=== PATIENT | male | born 1940 | race Caucasian/White ===

== ENCOUNTER 2024-07-21 08:04 | Observation (INO) | payer MEDICARE, MEDICAID, SELFPAY ==
[2024-07-21] VITALS (35 sets, daily range): BP systolic 148–177; BP diastolic 71–85; PULSE 63–88; TEMP 36.4–36.6; O2SAT 92–100; BMI 27.2; BMI 25.9
--- NOTE | 2024-07-21 08:13 | ECG_ITS ---
[facility] Date: 2024-07-21 Pat Name: WANDA ÁLVAREZ Department: Room: - Gender: Male [employer] Technical: : 1940 Requested By: [id number] Order Number: [id number] Reading MD: PRECIOUS WRAY M.D. Measurements Intervals Ivel Rate: 70 P: -30 AK: 224 QRS: 4 QRSD: 102 T: 11 QT: 386 QTc: 406 Interpretive Statements 1100 Sinus rhythm 2231 First degree AV block 2440 Incomplete right bundle branch block 9150 abnormal ECG Compared to ECG 12/18/2020 20:16:38 Supraventricular complexes are no longer present QRS duration has decreased Electronically Signed On 07-21-2024 20:04:17 EDT by PRECIOUS WRAY M.D.
[2024-07-21 09:00] LABS: Basophils Absolute Auto 0.1 10^3/uL (0.0-0.1); Basophils Percent Auto 0.8 % (0.2-2.0); Eosinophils Absolute Auto 0.4 10^3/uL (0.0-0.7); Eosinophils Percent Auto 5.7 % (0.9-7.0); Hematocrit 42.6 % (42.0-54.0); Hemoglobin 14.4 g/dL (14.0-18.0); Immature Granulocytes Abs Auto 0.03 10^3/uL (0.00-0.03); Immature Granulocytes Pct Auto 0.5 % (0.0-0.5); Lymphocytes Percent Auto 15.7 % (20.5-60.0); Mean Corpuscular HGB Conc 33.8 g/dL (29.9-35.2); Mean Corpuscular Hemoglobin 32.7 pg (25.9-34.0); Mean Corpuscular Volume 96.6 fL (80.0-94.0); Mean Platelet Volume 9.5 fL (9.5-13.5); Monocytes Absolute Auto 0.6 10^3/uL (0.3-0.8); Monocytes Percent Auto 9.1 % (1.7-12.0); Neutrophils Absolute Auto 4.2 10^3/uL (1.4-6.5); Neutrophils Percent Auto 68.2 % (43.0-75.0); Platelet Count 187 10^3/uL (150-450); Red Blood Count 4.41 10^6/uL (4.70-6.10); Red Cell Distribution Width 13.2 % (11.0-15.0); White Blood Count 6.2 10^3/uL (4.0-11.0)
[2024-07-21] MEDS: KETOROLAC TROMETHAMINE 30 MG/ML VIAL IVP (09:12)
[2024-07-21 09:15] LABS: Anion Gap 13.3; BUN Creatinine Ratio 32.2; Carbon Dioxide 29.1 mmol/L (21.0-32.0); Chloride 105 mmol/L (98-107); Estimated GFR (African America >60 (>=60 mL/min/1.73m^2); Estimated GFR (Non-African Ame >60 (>=60 mL/min/1.73m^2); Glucose 93 mg/dL (74-106); Potassium 4.4 mmol/L (3.5-5.1); Sodium 143 mmol/L (136-145)
--- NOTE | 2024-07-21 09:22 | ED.GENADUL1 ---
HPI HPI - General Adult General Chief complaint: Weakness Stated complaint: SHOULDER PAIN Time Seen by Provider: 07/21/24 08:06 Source: patient Limitations: no limitations History of Present Illness HPI narrative: 83-year-old male presents for weakness. He lives at home by himself. Paramedics reported that his home was not in a good condition at all. They state that the chair that he was sitting and had great amount of feces and urine on it. He has an ongoing issue with his right shoulder after a dislocation and he was not cleared for surgery by his PCP. He does not have any acute problems in the right shoulder. The patient states that sometimes he gets up and walks but the paramedics do not feel that he was able to do so. No family members present to give any further history. Related Data Home Medications ?Medication ?Instructions ?Recorded ?Confirmed benazepril 10 mg tablet 10 mg PO DAILY 07/21/24 07/21/24 cyanocobalamin (vitamin B-12) 1,000 mcg PO DAILY 07/21/24 07/21/24 1,000 mcg sublingual lozenge esomeprazole magnesium 40 mg 40 mg PO DAILY 07/21/24 07/21/24 capsule,delayed release Allergies Allergy/AdvReac Type Severity Reaction Status Date / Time No Known Drug Allergies Allergy Verified 07/21/24 08:26 Opioid HPI Opioid Management Most Recent Opioid Data: Last Pain Scale 10 Today, 08:51 Last ED Pain Assessment Today, 08:51 Last MAR Pain Assessment Today, 09:12 Review of Systems ROS Narrative Not obtainable, confused PFSH PFSH Social History Little interest or pleasure in doing things: not at all Feeling down, depressed, or hopeless: not at all Exam Narrative Exam Narrative: Nurses note and vital signs reviewed and patient is not hypoxic. General: The patient upon arrival was covered in dried feces. Skin: Warm, dry, no pallor noted. There is no rash noted. Head: Normocephalic, atraumatic Eye: Normal conjunctiva, no drainage Ears, Nose, Mouth, and Throat: oral mucosa is slightly dry. Nares patent. Cardiovascular: Regular Rate and Rhythm Respiratory: Patient is in no distress, no accessory muscle use, lungs are clear to auscultation, no wheezing, rales or rhonchi Back: non-tender GI: Soft and nontender Musculoskeletal: No obvious deformity in the right shoulder. He moves all 4 extremities well. Neurological: Awake and alert. He knows his name and where he is but he thought the year is 2007. Psychiatric: Cooperative Constitutional Vital Signs, click to edit/add: Last Vital Signs Temp 97.6 F 07/21/24 08:26 Pulse 71 07/21/24 08:26 Resp 22 H 07/21/24 08:26 BP 177/81 H 07/21/24 08:26 Pulse Ox 99 07/21/24 08:26 O2 Del Method Room Air 07/21/24 08:26 Course Vital Signs Vital signs: Vital Signs Temperature 97.6 F 07/21/24 08:26 Pulse Rate 71 07/21/24 08:26 Respiratory Rate 22 H 07/21/24 08:26 Blood Pressure 177/81 H 07/21/24 08:26 Pulse Oximetry 99 07/21/24 08:26 Oxygen Delivery Method Room Air 07/21/24 08:26 Temperature 97.6 F 07/21/24 08:26 Pulse Rate 71 07/21/24 08:26 Respiratory Rate 22 H 07/21/24 08:26 Blood Pressure 177/81 H 07/21/24 08:26 Pulse Oximetry 99 07/21/24 08:26 Oxygen Delivery Method Room Air 07/21/24 08:26 Medical Decision Making MDM Narrative Medical decision making narrative: Blood work is essentially negative. He has not given us a urine specimen and would not allow us to catheterize him. Chest x-ray and CT brain on my interpretation showed no acute findings. He has generalized weakness and will be admitted. The patient will likely need social science research assistant as the condition of his house was extremely poor and he was sitting in feces when the paramedics picked him up. Findings were discussed with the patient. Differential Diagnosis Differential Diagnosis: General: Weakness, dehydration, UTI, pneumonia Lab Data Lab results reviewed: Yes I reviewed the patient's lab results Labs: Lab Results 07/21/24 Range/Units 08:45 WBC 6.2 (4.0-11.0) 10^3/uL RBC 4.41 L (4.70-6.10) 10^6/uL Hgb 14.4 (14.0-18.0) g/dL Hct 42.6 (42.0-54.0) % MCV 96.6 H (80.0-94.0) fL MCH 32.7 (25.9-34.0) pg MCHC 33.8 (29.9-35.2) g/dL RDW 13.2 (11.0-15.0) % Plt Count 187 (150-450) 10^3/uL MPV 9.5 (9.5-13.5) fL Neut % (Auto) 68.2 (43.0-75.0) % Lymph % (Auto) 15.7 L (20.5-60.0) % [place] % (Auto) 9.1 (1.7-12.0) % Eos % (Auto) 5.7 (0.9-7.0) % Baso % (Auto) 0.8 (0.2-2.0) % Neut # (Auto) 4.2 (1.4-6.5) 10^3/uL Lymph # (Auto) 1.0 L (1.2-3.8) 10^3/uL [place] # (Auto) 0.6 (0.3-0.8) 10^3/uL Eos # (Auto) 0.4 (0.0-0.7) 10^3/uL Baso # (Auto) 0.1 (0.0-0.1) 10^3/uL Abs Immat Gran (auto) 0.03 (0.00-0.03) 10^3/uL Imm/Tot Granulo (auto) 0.5 (0.0-0.5) % Sodium 143 (136-145) mmol/L Potassium 4.4 (3.5-5.1) mmol/L Chloride 105 (98-107) mmol/L Carbon Dioxide 29.1 (21.0-32.0) mmol/L Anion Gap 13.3 BUN 29.0 H (7.0-18.0) mg/dL Creatinine 0.90 (0.70-1.30) mg/dL Est GFR ( Amer) >60 (>=60 mL/min/1.73m^2) Est GFR (Non-Af Amer) >60 (>=60 mL/min/1.73m^2) BUN/Creatinine Ratio 32.2 Glucose 93 (74-106) mg/dL Calcium 9.0 (8.5-10.1) mg/dL Troponin I High Sens 10.0 (4.0-76.1) pg/mL Imaging Data Chest x-ray and CT brain: My impression: No acute findings ECG Data Attestation: I personally reviewed and interpreted this ECG as follows: (EKG on my interpretation shows sinus rhythm with first-degree AV block) Discharge Plan Discharge Chief Complaint: Weakness Clinical Impression: Generalized weakness, Poor social situation Patient Disposition: Admitted as Observation Time of Disposition Decision: 10:54 Condition: Fair
[2024-07-21] MEDS: DIAZEPAM 10 MG/2 ML SYRINGE 2.5 MG IV ×2 (09:39→11:50)
[2024-07-21] MEDS: 0.9 % SODIUM CHLORIDE 1,000 ML 1000 ML IV (10:41)
[2024-07-21 11:20] LABS: Bilirubin Urine NEGATIVE (NEGATIVE); Blood Urine NEGATIVE (NEGATIVE); Clarity Urine CLEAR (CLEAR); Color Urine LT. YELLOW (YELLOW); Glucose Urine UA NEGATIVE (NEGATIVE); Ketones Urine TRACE mg/dL (NEGATIVE); Leukocyte Esterase Urine NEGATIVE (NEGATIVE); Nitrite Urine NEGATIVE (NEGATIVE); Protein Urine NEGATIVE (NEG/TRACE)
[2024-07-21 11:26] LABS: Bacteria Urine NONE SEEN #/HPF (NONE SEEN); Mucus Urine TRACE (NONE SEEN); RBC Urine 0-2 #/HPF (0-2); WBC Urine 0-2 #/HPF (NONE SEEN)
[2024-07-21 11:27] LABS: Cast Seen? NONE SEEN #/LPF (NONE SEEN); Crystals Seen? None Seen #/HPF (None Seen); Squamous Epithelial Cell Urine RARE #/LPF (NONE/RARE)
--- NOTE | 2024-07-21 14:36 | P.HP_ITS ---
HPI H&P: HPI History of Present Illness Chief complaint: SHOULDER PAIN, GENERALIZED WEAKNESS Narrative: Patient is a 83 y.o white male with past medical history of HTN, Vitamin B12 def, GERD and chronic shoulder pain who presented to the ER today after EMS was called for weakness. Patient was not able to get up from chair and had soiled himself and the chair. ER findings: Normal CBC, CMP, Trop normal, UA normal chest X-ray normal. Slightly elevated Bp 160/85. hr 74. Patient is not able to care for himself at home and with generalized weakness was admitted for further work up and plan of care. At the time of admission, patient is pleasant, is Alert and oriented x 3. He has never been . Lives at home alone in one story house. He has meals on wheels delivered to his home once a day at noon. He has neighbors that help him with things. He lives in a one story house and pred ominantly gets around using his walker and has everything he needs. He has been taking ibuprofen for his shoulder pain which helps. Only living relative is his brother who lives in [place]. He wishes to return home at discharge. He denies any chest pain, shortness of breath, diarrhea or n/v, no fevers or chills. Opioid HPI Opioid Management Most Recent Pain and Opioid Data: Last Pain Scale 2 Today, 16:41 Last Pain Assessment Today, 13:20 Last ED Pain Assessment Today, 08:51 Last MAR Pain Assessment Today, 09:12 Last ORT Total Score 0 Today, 13:19 Last ORT Risk Category Low Risk Today, 13:19 Review of Systems ROS Narrative ROS: a complete review of systems were reviewed with patient and are positive as below or listed in History of Chief Complaint. General: no fever, chills, night sweats Head: no headache, trauma, visual changes, nausea or vomiting Skin: no reported rashes, itching or sores Eyes: no blurriness of vision Ears: no reported hearing loss, vertigo, earache, or tinnitus Throat: no sore throat, hoarseness, swelling of neck, or tongue pain Heart: no chest pain Lungs: no shortness of breath or cough GI: no diarrhea or vomiting/nausea Urinary: no urinary urgency, frequency or pain Neuro: no numbness or tingling HEM: no bleeding issues or bruising ENDO: no thyroid problems Psych: no anxiety or depression PFSH PFS Medical History (Updated 07/21/24 @ 17:10 by Lois Chen DO) Vitamin B12 deficiency ?E53.8 - Deficiency of other specified B group vitamins (ICD-10) Hypertension ?I10 - Essential (primary) hypertension (ICD-10) High cholesterol ?E78.00 - Pure hypercholesterolemia, unspecified (ICD-10) Surgical History History of arthroscopy of shoulder ?Z98.890 - Other specified postprocedural states (ICD-10) Social History Within the past year, how often did you have a drink containing alcohol: never Score interpretation: A score less than 4 is consistent with normal alcohol consumption. Smoking status: Former smoker Second hand tobacco smoke exposure: No Non-prescribed substance use: denies use Previous occupational history: retired [employer] service Known occupational exposures/hazards: No Highest level of school completed/degree received: high school graduate Do you want help with school or training: No Are you now , , , , never or living with a partner: never In a typical week, how many times do you talk on the telephone with family, friends, or neighbors: once per week How often do you get together with friends or relatives: once per week How often do you attend moravian or catholic services: 1-3 times per year Do you belong to any clubs or organizations such as moravian groups unions, fraternal or athletic groups, or school groups: no Total score: 0 Score interpretation: A score of less than or equal to 1 indicates the most socially isolated. Little interest or pleasure in doing things: not at all Feeling down, depressed, or hopeless: not at all Feel stressed/tense/nervous/anxious/difficulty sleeping: not at all Due to disability, difficulty making decisions: No Do you think of yourself as: straight/heterosexual Gender Identity: male Meds Home Medications and Allergies Home Medications ?Medication ?Instructions ?Recorded ?Confirmed ?Type benazepril 10 mg tablet 10 mg PO DAILY 07/21/2410/07 History cyanocobalamin (vitamin B-12) 1,000 mcg PO DAILY 07/2107/21/24 History 1,000 mcg sublingual lozenge esomeprazole magnesium 40 mg 40 mg PO DAILY 07/21/24 0 07/21/24 History capsule,delayed release Allergies Allergy/AdvReac Type Severity Reaction Status Date / Time No Known Drug Allergies Allergy Verified 07/21/24 08:26 Exam Narrative Exam Narrative: General: Patient is alert, and oriented to person, place and time with normal affect Skin: no visible rashes, or ulcers Head: atraumatic, acephalic Eyes: PERRLA, no nystagmus present, conjunctiva clear, no scleral icterus Ears: normal gross auditory acuity Neck: no masses palpated, normal thyroid Heart: Normal rate and rhythm, no murmurs/rubs/gallops Lungs: no audible wheezes, crackles and normal breath sounds all lung zazueta Abdomen: Normal audible bowel sounds, no distension, No palpable masses, no organomegaly, no rebound/guarding/ or rigidity Musculoskeletal: muscle atrophy noted, ROM is limited due to sitting in a chair but appears to have good strength lower ext, no swelling bilateral lower extremities Neuro: CN II-X grossly intact Constitutional Vital Signs, click to edit/add: Last Vital Signs Temp 97.7 F 07/21/24 13:19 Pulse 74 07/21/24 13:19 Resp 16 07/21/24 13:19 BP 160/85 H 07/21/24 13:19 Pulse Ox 98 07/21/24 13:19 O2 Del Method Room Air 07/21/24 13:19 Results Labs Labs: Short CBC 07/21/24 Range/Units 08:45 WBC 6.2 (4.0-11.0) 10^3/uL Hgb 14.4 (14.0-18.0) g/dL Hct 42.6 (42.0-54.0) % Plt Count 187 (150-450) 10^3/uL BMP 07/21/24 08:45 Sodium 143 Potassium 4.4 Chloride 105 Carbon Dioxide 29.1 BUN 29.0 H Creatinine 0.90 Glucose 93 Calcium 9.0 Urine 07/21/24 Range/Units 11:11 Urine Color Lt. yellow (YELLOW) Urine Clarity Clear (CLEAR) Urine pH 8.0 (5.0-9.0) Ur Specific [place] 1.020 (1.005-1.025) Urine Protein Negative (NEG/TRACE) mg/dL Urine Glucose (UA) Negative (NEGATIVE) mg/dL Assessment and Plan Assessment and Plan (1) Generalized weakness: (2) Poor social situation: (3) Hypertension: Qualifiers: Hypertension type: primary hypertension Qualified Code(s): I10 - Essential (primary) hypertension (4) High cholesterol: (5) Right shoulder pain: Qualifiers: Chronicity: chronic Qualified Code(s): M25.511 - Pain in right shoulder; G89.29 - Other chronic pain (6) Vitamin B12 deficiency: Plan labs reviewed and normal range, chest xray normal. Will get PT/OT evaluations in the morning. Check B12 level. Start Ibuprofen for shoulder pain. Patient aware and amendable to staying tonight. Social work consult tomorrow. Patient is a full code Patient is in observation status and is not expected to cross 2 midnights
[2024-07-21] MEDS: LISINOPRIL 10 MG TABLET PO (15:46)
[2024-07-21] MEDS: ACETAMINOPHEN 500 MG TABLET 1000 MG PO (15:46)
[2024-07-22] VITALS: BP 129/57; PULSE 59; TEMP 36.6; O2SAT 93
[2024-07-22 04:00] VITALS: BP 144/66; PULSE 66; TEMP 36.7; O2SAT 94
[2024-07-22] MEDS: PANTOPRAZOLE SODIUM 40 MG TABLET.DR PO (05:53)
[2024-07-22 06:12] LABS: Alanine Aminotransferase 14 U/L (16-63); Albumin Globulin Ratio 0.8; Albumin Level 2.7 g/dL (3.4-5.0); Alkaline Phosphatase 92 U/L (46-116); Anion Gap 12.9; Aspartate Amino Transferase 15 U/L (15-37); BUN Creatinine Ratio 42.2; Bilirubin Total 0.5 mg/dL (0.2-1.0); Calcium 8.6 mg/dL (8.5-10.1); Carbon Dioxide 25.1 mmol/L (21.0-32.0); Chloride 107 mmol/L (98-107); Estimated GFR (African America >60 (>=60 mL/min/1.73m^2); Estimated GFR (Non-African Ame >60 (>=60 mL/min/1.73m^2); Globulin 3.2 g/dL; Glucose 111 mg/dL (74-106); Sodium 141 mmol/L (136-145); Total Protein 5.9 g/dL (6.4-8.2)
[2024-07-22 07:26] VITALS: BP 149/74; PULSE 69; TEMP 36.6; O2SAT 94
--- NOTE | 2024-07-22 07:54 | P.DS_ITS ---
DS: Providers Provider Date of admission: 07/21/24 12:44 Primary care physician: Cloeman Pedraza DO Attending physician on admission: Lois Chen Consults: 07/21/24 13:44 Occupational Therapy Eval and Treat Routine Reason for consultation: weakness Has provider been notified: No Physical Therapy Eval and Treat Routine Reason for consultation: weakness Has provider been notified: No Discharging clinician: Lois Chen DS: Diagnosis Discharge Diagnosis (1) Generalized weakness: (2) Poor social situation: (3) Hypertension: Qualifiers: Hypertension type: primary hypertension Qualified Code(s): I10 - Essential (primary) hypertension (4) High cholesterol: (5) Right shoulder pain: Qualifiers: Chronicity: chronic Qualified Code(s): M25.511 - Pain in right shoulder; G89.29 - Other chronic pain (6) Vitamin B12 deficiency: DS: Summary Hospital Course Hospital Course: Patient is a 83 y.o white male with past medical history of HTN, Vitamin B12 def, GERD and chronic shoulder pain who presented to the ER yesterday after EMS was called for weakness. Patient was not able to get up from chair and had soiled himself and the chair. ER findings: Normal CBC, CMP, Trop normal, UA normal chest X-ray normal. Slightly elevated Bp 160/85. hr 74. Patient is not able to care for himself at home and with generalized weakness was admitted for further work up and plan of care. At the time of admission, patient was pleasant, is Alert and oriented x 3. He has never been . Lives at home alone in one story house. He has meals on wheels delivered to his home once a day at noon. He has neighbors that help him with things. He lives in a one story house and predominantly gets around using his walker and has everything he needs. He has been taking ibuprofen for his shoulder pain which helps. Only living relative is his brother who lives in [place]. He did well overnight and performed well for physical therapy today. He is appreciative with getting home health services at his home. He wishes to return home today at discharge. He denies any chest pain, shortness of breath, diarrhea or n/v, no fevers or chills. Overall, feels back to his baseline. Vitals and labs stable at the time of discharge. He has close outpatient follow up with his PCP. No changes to Home medications. He may return to the ER with any worsening signs or symptoms. Status at Discharge Functional status at discharge: uses cane/walker Overall status at discharge: patient is back to baseline Time Spent with Patient Time attestation: Total time spent providing and/or coordinating discharge services: Time spent: greater than 30 minutes Exam Narrative Exam Narrative: General: Patient is alert, and oriented to person, place and time with normal affect Skin: no visible rashes, or ulcers Head: atraumatic, acephalic Eyes: PERRLA, no nystagmus present, conjunctiva clear, no scleral icterus Ears: normal gross auditory acuity Neck: no masses palpated, normal thyroid Heart: Normal rate and rhythm, no murmurs/rubs/gallops Lungs: no audible wheezes, crackles and normal breath sounds all lung zazueta Abdomen: Normal audible bowel sounds, no distension, No palpable masses, no organomegaly, no rebound/guarding/ or rigidity Musculoskeletal: muscle atrophy noted, ROM is limited due to sitting in a chair but appears to have good strength lower ext, no swelling bilateral lower extremities Neuro: CN II-X grossly intact Constitutional Vital Signs, click to edit/add: Last Vital Signs Temp 98 F 07/22/24 07:26 Pulse 69 07/22/24 07:26 Resp 20 07/22/24 07:26 BP 149/74 H 07/22/24 07:26 Pulse Ox 94 L 07/22/24 07:26 O2 Del Method Room Air 07/22/24 07:26 DS: Data Data Completed and Pending Labs on day of discharge: Labs from last 24 hours 07/22/24 07/21/24 07/21/24 04:41 11:11 08:45 WBC 6.2 RBC 4.41 L Hgb 14.4 Hct 42.6 MCV 96.6 H MCH 32.7 MCHC 33.8 RDW 13.2 Plt Count 187 MPV 9.5 Neut % (Auto) 68.2 Lymph % (Auto) 15.7 L [place] % (Auto) 9.1 Eos % (Auto) 5.7 Baso % (Auto) 0.8 Neut # (Auto) 4.2 Lymph # (Auto) 1.0 L [place] # (Auto) 0.6 Eos # (Auto) 0.4 Baso # (Auto) 0.1 Abs Immat Gran (auto) 0.03 Imm/Tot Granulo (auto) 0.5 Sodium 141 143 Potassium 4.0 4.4 Chloride 107 105 Carbon Dioxide 25.1 29.1 Anion Gap 12.9 13.3 BUN 35.0 H 29.0 H Creatinine 0.83 0.90 Est GFR ( Amer) >60 >60 Est GFR (Non-Af Amer) >60 >60 BUN/Creatinine Ratio 42.2 32.2 Glucose 111 H 93 Calcium 8.6 9.0 Total Bilirubin 0.5 AST 15 ALT 14 L Alkaline Phosphatase 92 Troponin I High Sens 10.0 Total Protein 5.9 L Albumin 2.7 L Globulin 3.2 Albumin/Globulin Ratio 0.8 TSH 1.720 Urine Color Lt. yellow Urine Clarity Clear Urine pH 8.0 Ur Specific [place] 1.020 Urine Protein Negative Urine Glucose (UA) Negative Urine Ketones Trace A Urine Occult Blood Negative Urine Nitrite Negative Urine Bilirubin Negative Urine Urobilinogen 2.0 A Ur Leukocyte Esterase Negative Urine RBC 0-2 Urine WBC 0-2 A Ur Squamous Epith Cells Rare Urine Crystals None seen Urine Bacteria None seen Urine Casts None seen Urine Mucus Trace A Discharge Plan Discharge Disposition: Home Health Service Condition: Fair Discharge Medications: Continued esomeprazole magnesium 40 mg capsule,delayed release(DR/EC) 40 mg PO DAILY benazepril 10 mg tablet 10 mg PO DAILY cyanocobalamin (vitamin B-12) 1,000 mcg lozenge 1,000 mcg PO DAILY Activity: ambulate only with your walker Diet: advance to your usual diet Print Language: Czech Patient Instructions: Weakness (DC) Forms: Portal Instructions Follow Up Appointments: Dr. Pedraza's office will call the patient to schedule a follow up appt. [phone] Discharge location: Home with Home Health Services
[2024-07-22] MEDS: FOLIC ACID/VIT B6/VIT B12 TABLET 1 TAB PO (08:48)
[2024-07-22] MEDS: LISINOPRIL 10 MG TABLET PO (08:48)
--- NOTE | 2024-07-22 09:40 | CM.NOTE ---
Rounds made with Dr. Chen, pt will discharge to home with HH services. Pt provided with [employer] star [employer] list for HH agencies, pt requests [facility]. Pt also asking about assistance for cleaning and housekeeping, pt given list of caregivers and explained to pt they would be out of pocket cost. Pt verbalizes understanding. SW working on establishing HH services. Discussed with pt Medicare Outpatient Observation Notice, pt voices understanding and signs paper. Original given to pt and copy placed in pt's chart.
--- NOTE | 2024-07-22 11:20 | SWNOTE1 ---
SHAHEEN spoke to case management. Pt is being discharged today. Pt was recommended dc with home health, will go with [facility]. Pt does have meals on wheels coming into home currently. Case management providing private rn care manager list as well. SHAHEEN faxed referral to [facility].
--- NOTE | 2024-07-22 11:41 | SWNOTE1 ---
Called [facility] to set up transportation. They will be here between 12 and 12:30. SW notified nursing of fruit or nut picker time.
--- NOTE | 2024-07-22 12:56 | SWNOTE1 ---
SW received a call from [facility] and they can accept the pt. Dc summary, dc med rec, and CRF faxed to [facility].
--- NOTE | 2024-07-23 14:26 | CM.DCFOLLOWU ---
Person spoke with:patient How are you feeling? well How is your pain? none Did you understand your discharge instructions? yes Do you have any questions about your discharge instructions? no Were you given any prescriptions at discharge? no Were you able to get your prescriptions filled? N/A Do you understand how to take your medications as ordered? yes Do you have any questions about your follow up appointment and do you plan to keep your follow up appointment? no questions, has follow up scheduled Is there anything else that you would like to discuss?no Questions/Comments/Concerns/Other:none
== END 2024-07-22 12:28 | disposition home health service (06) ==
LOC: ER 10:54 → MS 12:55
PROVIDERS: Admitting Provider Family Medicine; Emergency Provider Emergency Medicine; PCP Internal Medicine; Visit Provider Family Medicine
DX: R53.1 Weakness (principal); E53.8 Deficiency of other specified B group vitamins; M25.511 Pain in right shoulder; Z59.89 Other problems related to housing and economic circumstances; I10 Essential (primary) hypertension; K21.9 Gastro-esophageal reflux disease without esophagitis; G89.29 Other chronic pain; Z87.891 Personal history of nicotine dependence; M62.50 Muscle wasting and atrophy, not elsewhere classified, unspecified site
CPT/HCPCS: 36415; 70450; 71045; 80048; 80053; 81001; 84443; 84484; 85025; 87040; 93005; 96374; 96375; 96376; 97161; 97165; 97530; 99285; G0378; J1885; J3360